=== PATIENT | female | born 1975 | race Caucasian/White ===

== ENCOUNTER 2019-07-06 12:57 | Emergency (ER) | payer OTHER ==
[~2019-07-06] VITALS: Ht 172.7 cm; Wt 102.1 kg
[~2019-07-06 12:57] MED LIST: ALBIPROI INH; ALBU90OI; ALBU90OI6 INH; BUPR150T2; ESTR2 PO; Lamictal150 MG PO; OMEPRAZOLE MAGN20 MG PO; OXCA300; PRAZ2 PO; PRED10 PO; QUET200 PO; TRAZ100
[2019-07-06] MEDS ORDERED: CYCL10 PO (13:21)
[2019-07-06] MEDS ORDERED: IBUP600 PO (13:21)
== END 2019-07-06 14:48 | disposition home or self-care (01) ==
LOC: ER 12:57
DX: S20.219A Contusion of unspecified front wall of thorax, initial encounter (principal); J45.909 Unspecified asthma, uncomplicated; F43.10 Post-traumatic stress disorder, unspecified; F17.200 Nicotine dependence, unspecified, uncomplicated; Z88.8 Allergy status to other drugs, medicaments and biological substances; Z79.899 Other long term (current) drug therapy; Z79.51 Long term (current) use of inhaled steroids; V43.52XA Car driver injured in collision with other type car in traffic accident, initial encounter
CPT/HCPCS: 71046; 99284-25